=== PATIENT | male | born 1930 | race Caucasian/White ===

== ENCOUNTER 2017-04-26 19:22 | Emergency (ER) | payer OTHER ==
[2017-04-26 19:36] VITALS: RESP 16; TEMP 98.2
--- NOTE | 2017-04-26 20:12 | EDPHY ---
H & P Time Seen by Provider: 04/26/17 20:03 HPI/ROS: CHIEF COMPLAINT: Head injury HISTORY OF PRESENT ILLNESS: 87-year-old man with Parkinson's fell today. He was trying to remove his compression stockings and tripped landing on his head. History is from the son who was with the patient and translating. Patient did not lose consciousness only has pain in his forehead. Does not have weakness or numbness in extremities. Apparently did not lose consciousness. REVIEW OF SYSTEMS: Eye: no change in vision ENT: no sore throat Cardiac: no chest pain or syncope Pulmonary: no cough or SOB Abdomen: No vomiting or abdominal pain Musculoskeletal: Some neck pain Skin: Abrasion forehead Neuro: no headache, can move arms and legs Constitutional: no fever : no urinary symptoms A comprehensive 10 point review of systems is otherwise negative aside from elements mentioned in the history of present illness. PAST MEDICAL HISTORY: Includes Parkinson's, hypertension on amlodipine, hernia , cholecystectomy Social history: Here with his son General Appearance: Alert and conversant, cooperative. Eyes: No scleral icterus. Extraocular motion intact and pupils reactive ENT, Mouth: Normal mucous membranes. Forehead abrasion 2 cm diameter nonsuturable. Respiratory: Normal respiratory effort, breath sounds equal, lungs are clear to auscultation. Cardiovascular: Regular rate and rhythm. Gastrointestinal: Abdomen is soft and non tender. Neurological: Alert, face symmetric, normal motor and sensory in extremities. Skin: Abrasion on forehead. He does have venous stasis changes bilaterally. Musculoskeletal: Peripheral edema 2+ but no calf tenderness. No thoracic or lumbar spine tenderness. He does have midline cervical spine tenderness. No other extremity or clavicular tenderness. Psychiatric: Not agitated. Emergency Department course/MDM: EKG, head cervical spine CT, wound care and tetanus update. By history the fall was clearly mechanical and not syncope or likely to be dysrhythmia or cardiac problem. 2121: [place], CT head and cervical spine CT no acute traumatic injury seen on either. Clinically cleared by myself at this time. Very superficial skin abrasion flap trimmed off of the forehead, nonsuturable. Patient and son state they are comfortable with being discharged. Smoking Status: Former smoker Constitutional: Initial Vital Signs Temperature (C) 36.8 C 04/26/17 19:30 Heart Rate 82 04/26/17 19:30 Respiratory Rate 16 04/26/17 19:30 Blood Pressure 148/72 H 04/26/17 19:30 O2 Sat (%) 96 04/26/17 19:30 O2 Delivery Mode Room Air Allergies/Adverse Reactions: No Known Allergies Allergy (Unverified 04/26/17 19:28) Home Medications: Medication Instructions Recorded Amlodipine-Benazepril 5-10 mg 04/26/17 Aspirin 04/26/17 Galantamine ER 04/26/17 Isosorbide Mononitrate 04/26/17 Levothyroxine 04/26/17 Oxybutynin 04/26/17 Pramipexole ER 04/26/17 Medical Decision Making - Diagnostics EKG Interpretation: 12-lead EKG interpreted by me; official reading is in trace master. My interpretation is sinus rhythm with first-degree AV block otherwise normal. Imaging Results: Imaging Impressions Cervical Spine CT 04/26/17 20:10 Impression: Head CT: 1. No acute intracranial abnormalities. 2. Punctate calcification in the inferior right frontal lobe, along with a subtle hyperdensity in the perisylvian left frontal lobe, may represent the sequelae of prior infection. 3. Severe chronic microvascular ischemic changes in the supratentorial white matter. 4. Moderate generalized atrophy. Cervical Spine: 1. No definite acute abnormalities. 2. Severe C1-C2 degenerative changes with suspected pannus formation. Consider erosive arthropathy such as rheumatoid arthritis. 3. Posterior subluxation of the right lateral mass of C1 relative to C2 which may be positional or could be secondary to instability. 4. Severe multilevel degenerative changes, most apparent from C5 through C7, and described in detail above. 5. Cannot exclude ligament, spinal cord and/or vascular abnormalities on this exam. If there is persistent pain or neurologic deficit, consider MRI and/or flexion and extension radiographs of the cervical spine. Dr. Prince discussed these findings by telephone with SHAKILA GLEASON on 04/26/2017 21:21. Head CT 04/26/17 20:10 Impression: Head CT: 1. No acute intracranial abnormalities. 2. Punctate calcification in the inferior right frontal lobe, along with a subtle hyperdensity in the perisylvian left frontal lobe, may represent the sequelae of prior infection. 3. Severe chronic microvascular ischemic changes in the supratentorial white matter. 4. Moderate generalized atrophy. Cervical Spine: 1. No definite acute abnormalities. 2. Severe C1-C2 degenerative changes with suspected pannus formation. Consider erosive arthropathy such as rheumatoid arthritis. 3. Posterior subluxation of the right lateral mass of C1 relative to C2 which may be positional or could be secondary to instability. 4. Severe multilevel degenerative changes, most apparent from C5 through C7, and described in detail above. 5. Cannot exclude ligament, spinal cord and/or vascular abnormalities on this exam. If there is persistent pain or neurologic deficit, consider MRI and/or flexion and extension radiographs of the cervical spine. Dr. Prince discussed these findings by telephone with SHAKILA GLEASON on 04/26/2017 21:21. Differential Diagnosis: Differential diagnosis considered for head injury including but not limited to concussion, skull fracture, intraparenchymal contusion, subarachnoid, subdural and epidural hematoma. - Data Points Medications Given: Discontinued Medications Tetanus/Diphtheria Toxoids Adsorbed (Tetanus-Diphtheria Grifols) 0.5 ml IM .ONCE ONE Stop: 04/26/17 20:11 Last Admin: 04/26/17 21:11 Dose: Not Given Departure - Departure Disposition: Home, Routine, Self-Care Clinical Impression: Forehead abrasion Qualifiers: Encounter type: initial encounter Qualified Code(s): S00.81XA - Abrasion of other part of head, initial encounter Condition: Good Instructions: Head Injury (ED), Abrasion (ED) Referrals: DEBORAH MCALLISTER [Other] - As per Instructions
--- NOTE | 2017-04-26 20:34 | CPEKG ---
Heart Rate: 61 RR Interval: 984 P-R Interval: 232 QRSD Interval: 94 QT Interval: 420 QTC Interval: 423 P [place]: 39 QRS [place]: 8 T Wave [place]: 53 EKG Severity - ABNORMAL ECG - EKG Impression: SINUS RHYTHM EKG Impression: FIRST DEGREE AV BLOCK Electronically Signed By: Harley Benoit 26-Apr-2017 20:45:27
[2017-04-26] MEDS: TETANUS, DIPHTHERIA TOX (7YR+) 0.5 ML INJ IM ONE ×2 (20:44→21:11)
[2017-04-26 21:41] VITALS: BP 127/67; PULSE 75; O2SAT 94
== END 2017-04-26 21:59 | disposition home or self-care (01) ==
DX: S00.81XA Abrasion of other part of head, initial encounter (principal); I10 Essential (primary) hypertension; Z87.891 Personal history of nicotine dependence; W01.0XXA Fall on same level from slipping, tripping and stumbling without subsequent striking against object, initial encounter; Y93.89 Activity, other specified

== ENCOUNTER 2017-05-29 18:39 | Observation (INO) | payer OTHER ==
--- NOTE | 2017-05-29 19:36 | CPEKG ---
Heart Rate: 98 RR Interval: 612 P-R Interval: 180 QRSD Interval: 86 QT Interval: 348 QTC Interval: 445 P [place]: 0 QRS [place]: 25 T Wave [place]: 42 EKG Severity - NORMAL ECG - EKG Impression: SINUS RHYTHM Electronically Signed By: Hung Tompkins 29-May-2017 19:50:53
[2017-05-29] MEDS ORDERED: NS 2,000 ML IV ONE (19:42)
--- NOTE | 2017-05-29 19:49 | EDPHY ---
H & P Stated Complaint: SENT FROM PCP, NICK, COCCYX FX, DIZZINESS Time Seen by Provider: 05/29/17 19:22 HPI/ROS: CHIEF COMPLAINT: Possible pneumonia and dizziness HISTORY OF PRESENT ILLNESS: Patient is an 87-year-old man who has a history of chronic anemia. He has been treated without antibiotics for chronic left leg cellulitis. He was vomiting last night but no diarrhea. No fever. His symptoms resolved by morning. This morning however he fell and caused a skin tear over his cellulitis region. He complained of feeling lightheaded when he stood up. No chest pain. No shortness of breath. No syncope. His primary sent x-ray to his home and they obtained a chest x-ray and x-ray of his tailbone. The patient was told that he had a left-sided pneumonia as well as a fracture of his sacrum and to come to the ER. He denies fever, cough, shortness of breath. He does complain of pain in his tailbone. He has been able to ambulate. He denies extremity injury. REVIEW OF SYSTEMS: Constitutional: denies: chills, fever, recent illness, recent injury EENTM: denies: blurred vision, double vision, nose congestion Respiratory: denies: cough, shortness of breath Cardiac: denies: chest pain, irregular heart rate, lightheadedness, palpitations Gastrointestinal/Abdominal: denies: abdominal pain, diarrhea, nausea, vomiting, blood streaked stools Genitourinary: denies: dysuria, frequency, hematuria, pain Musculoskeletal: See HPI Skin: denies: lesions, rash, jaundice, bruising Neurological: See HPI Hematologic/Lymphatic: denies: blood clots, easy bleeding, easy bruising Immunologic/allergic: denies: HIV/AIDS, transplant EXAM: GENERAL: Well-appearing, well-nourished and in no acute distress. HEAD: Atraumatic, normocephalic. EYES: Pupils equal round and reactive to light, extraocular movements intact, sclera anicteric, conjunctiva are normal. ENT: TMs normal, nares patent, oropharynx clear without exudates. Moist mucous membranes. NECK: Normal range of motion, supple without lymphadenopathy or JVD. LUNGS: Breath sounds clear to auscultation bilaterally and equal. No wheezes rales or rhonchi. HEART: Regular rate and rhythm without murmurs, rubs or gallops. ABDOMEN: Soft, nontender, normoactive bowel sounds. No guarding, no rebound. No masses appreciated. BACK: No CVA tenderness, no spinal tenderness, step-offs or deformities pain over coccyx, no low back pain EXTREMITIES: Normal range of motion, no pitting or edema. No clubbing or cyanosis. Mild edema lower extremities NEUROLOGICAL: Cranial nerves II through XII grossly intact. Normal speech, normal gait. 5/5 strength, normal movement in all extremities, normal sensation PSYCH: Normal mood, normal affect. SKIN: Chronic dermatitis/venous stasis type injury to left leg, new skin tear Source: Patient Exam Limitations: No limitations - Personal History Current Tetanus Diphtheria and Acellular Pertussis (TDAP): Yes - Medical/Surgical History Hx Asthma: No Hx Chronic Respiratory Disease: No Hx Diabetes: No Hx Cardiac Disease: No Hx Renal Disease: No Hx Cirrhosis: No Hx Alcoholism: No Hx HIV/AIDS: No Hx Splenectomy or Spleen Trauma: No Other PMH: htn, parkinsons, hernia, LLE CELLULITIS, JOAO - Family History Significant Family History: No pertinent family hx - Social History Smoking Status: Former smoker Alcohol Use: None Constitutional: Initial Vital Signs Temperature (C) 36.4 C 05/29/17 19:26 Heart Rate 94 05/29/17 19:26 Respiratory Rate 18 05/29/17 19:26 Blood Pressure 135/73 H 05/29/17 19:26 O2 Sat (%) 95 05/29/17 19:26 O2 Delivery Mode Room Air Allergies/Adverse Reactions: No Known Allergies Allergy (Unverified 04/26/17 19:28) Home Medications: Medication Instructions Recorded Galantamine Hydrobromide [Razadyne 4 mg PO DAILY 04/26/17 4 MG (*)] Levothyroxine [Synthroid 50 mcg 50 mcg PO DAILY06 04/26/17 (*)] Oxybutynin Chloride [OXYBUTYNIN 5 mg PO DAILY 04/26/17 CHLORIDE ER] amLODIPine BESYLATE/BENAZEPRIL 1 each PO DAILY 04/26/17 [Lotrel 5/10 mg Cap (*)] Herbals/Supplements -Info Only 1 ea PO DAILY 05/29/17 Medical Decision Making - Diagnostics EKG Interpretation: An EKG obtained and was read and documented in trace view. Please see trace view for full reading and report. Sinus rhythm, no acute ischemic changes Imaging: Discussed imaging studies w/ diamond powder technician Radiologist ED Course/Re-evaluation: 9:30 p.m. we discussed the patient's lab work and x-ray which is reassuring. He has chronic fibrosis. He does not appear to have an acute pneumonia. He is not febrile or hypoxic or tachycardic. He does not have a cough or shortness of breath. He does have a history of smoking but quit 30 years ago. We discussed options. The patient would like admission because he states that he cannot care for himself in his independent living. He has been falling frequently and now has a broken his coccyx and has left leg cellulitis versus venous stasis versus dermatitis. I have paged hospital service for admission. 9:32 p.m. I discussed the case with Dr. Lazo who will admit. Differential Diagnosis: Partial list of the Differential diagnosis considered include but were not limited to; failure to thrive, cellulitis, venous stasis, pneumonia, pelvic fracture, hip fracture and although unlikely based on the history and physical exam, I also considered sepsis, CVA. - Data Points Laboratory Results: Laboratory Results 05/29/17 19:35 05/29/17 19:35 Medications Given: Discontinued Medications Albuterol/Ipratropium (Duoneb) 3 ml IH QID PENDING SALE TO [facility] Stop: 11/26/17 05:59 Last Admin: 05/30/17 13:07 Dose: 3 ml Amlodipine/Benazepril HCl (Lotrel 5-10 Mg Capsule) 1 each PO DAILY MADAN Stop: 11/26/17 08:59 Last Admin: 05/30/17 09:04 Dose: 1 each Enoxaparin Sodium (Lovenox) 40 mg SC DAILY MADAN Stop: 11/26/17 08:59 Last Admin: 05/30/17 09:04 Dose: 40 mg Galantamine Hydrobromide (Razadyne) 4 mg PO DAILY MADAN Stop: 11/26/17 08:59 Last Admin: 05/30/17 09:04 Dose: 4 mg Sodium Chloride (Ns) 2,000 mls @ 4,000 mls/hr 30 ml/kg infuse over 30 min ( 2000 ml) IV EDNOW ONE PRN Reason: Protocol Stop: 05/29/17 20:11 Last Admin: 05/29/17 20:22 Dose: 2,000 mls Levothyroxine Sodium (Synthroid) 50 mcg PO DAILY06 MADAN Stop: 11/26/17 05:59 Last Admin: 05/30/17 05:37 Dose: 50 mcg Oxybutynin Chloride (Ditropan Xl) 5 mg PO DAILY MADAN Stop: 11/26/17 08:59 Last Admin: 05/30/17 09:04 Dose: 5 mg Departure - Departure Disposition: Home, Routine, Self-Care Clinical Impression: Failure to thrive in adult Fractured coccyx Qualifiers: Encounter type: initial encounter Fracture type: closed Qualified Code(s): S32.2XXA - Fracture of coccyx, initial encounter for closed fracture Fall Qualifiers: Encounter type: initial encounter Qualified Code(s): W19.XXXA - Unspecified fall, initial encounter Skin tear of left lower leg without complication Qualifiers: Encounter type: initial encounter Qualified Code(s): S81.812A - Laceration without foreign body, left lower leg, initial encounter Condition: Fair
[2017-05-29 19:54] LABS: PLATELET COUNT 185 10^3/uL (150-400)
[2017-05-29 20:17] LABS: INR 1.15 (0.83-1.16); PROTIME(PATIENT) 14.9 SEC (12.0-15.0)
[2017-05-29] MEDS ORDERED: ONDANSETRON 4 MG/2 ML VIAL IVP PRN (23:01)
[2017-05-29] MEDS ORDERED: ACETAMINOPHEN 325 MG TAB PO PRN (23:01)
[2017-05-29] MEDS ORDERED: NS 1,000 ML IV SCH (23:15)
[2017-05-30 04:53] LABS: PLATELET COUNT 183 10^3/uL (150-400)
[2017-05-30] MEDS: IPRATROPIUM/ALBUTEROL 3 ML DEYVIAL IH SCH ×2 (05:30→13:07)
[2017-05-30] MEDS ORDERED: LEVOTHYROXINE 50 MCG TAB PO SCH (06:00)
[2017-05-30] MEDS ORDERED: OXYBUTYNIN 5 MG EXT REL TAB PO SCH (09:00)
[2017-05-30] MEDS ORDERED: AMLODIPINE BESYLATE 5/BENAZEPRIL 10MG 1 EACH CAP PO SCH (09:00)
[2017-05-30] MEDS ORDERED: ENOXAPARIN 40 MG/0.4 ML SYR SC SCH (09:00)
[2017-05-30] MEDS ORDERED: GALANTAMINE HBR 4 MG PO SCH (09:00)
--- NOTE | 2017-05-30 10:18 | GHP ---
[f rep st] HISTORY AND PHYSICAL DATE OF ADMISSION: 05/29/2017 SOURCE: Patient able to provide majority of the history, it was slightly difficult to obtain history as the patient's primary language is Yoruba, but he does have a pretty notable grasp with Yi. He is a little bit tangential, but redirectable. EMR was reviewed and case discussed with the [facility] hospital[facility] provider. CHIEF COMPLAINT: Fall, lightheadedness. HISTORY OF PRESENT ILLNESS: This is a very pleasant 87-year-old gentleman with past medical history significant for chronic lung fibrosis, anemia, left leg cellulitis, hypertension, Parkinson disease, and venous stasis, who presents to the emergency department today from his independent living facilit y following a fall earlier in the morning, as well as development of lightheadedness. The patient re ports that this was a mechanical fall. He denies any loss of consciousness, but states that he may h ave hit his head and his back. The patient is primarily dependent on a wheelchair, but is able to am bulate. He is noted to be unsteady on his feet. He did report an episode of vomiting last night. N o fevers, chills, cough, rhinorrhea. No worsening shortness of breath. No diarrhea. The patient re ports that his cellulitis on his lower extremity is improving. REVIEW OF SYSTEMS: Negative except as noted above and urinary incontinence. ALLERGIES: No known drug allergies. HOME MEDICATIONS: As available in EMR, amlodipine, benazepril 5/10 mg p.o. daily, galantamine 4 mg p .o. daily, oxybutynin 5 mg p.o. daily, levothyroxine 50 mcg p.o. daily. PAST MEDICAL HISTORY: Significant for chronic anemia, chronic lung fibrosis, lower leg cellulitis an d chronic wound, hypertension, Parkinson disorder, venous stasis, urinary incontinence, prostate canc er status post prostatectomy. PAST SURGICAL HISTORY: Significant for cholecystectomy. FAMILY HISTORY: Significant for family members remotely with TB. SOCIAL HISTORY: Patient lives independently in independent living. He quit smoking several years ag o. He does not drink or do any drugs. He has good family support from his children. CODE STATUS: Will need to clarify with patient's son available tomorrow. The patient does have some limited difficulties with Yi, and so will need to further discuss code status when additional s upport is available versus translation services. PHYSICAL EXAMINATION: VITAL SIGNS: Upon arrival to the emergency department, blood pressure 135/73, heart rate is 94, respiratory rate 18, O2 saturation 94% on room air with temperature 36.4. Vitals available at the time of interview, blood pressure 137/66, heart rate 92, respiratory rate 16, O2 sat uration 91% on room air with a temperature of 36.6. GENERAL: No acute distress. Very pleasant, eld erly, frail-appearing gentleman, is lying quietly in bed, awake. He is pleasant, talkative, slightly tangential, but redirectable. HEAD: Normocephalic, atraumatic. EYES: Extraocular muscles are int act. Pupils equal, round, reactive to light bilaterally and symmetric. No scleral icterus or conjun ctival injection. ENT: Mucous membranes appear moist. No pharyngeal erythema or exudates. Dentiti on in fair condition. NECK: Supple. Trachea midline. CV: Regular rate and rhythm. Faint systoli c murmur appreciated. No rubs or gallops. RESPIRATORY: Diminished bibasilarly, slightly coarse in the bases bilaterally. No wheezes or rhonchi. Unlabored breathing. Occasional cough. ABDOMEN: Po sitive bowel sounds. Soft, nontender to palpation. No rebound, guarding, or masses appreciated. : No suprapubic tenderness to palpation. No Reid catheter in place. EXTREMITIES: Patient with so me lower extremity edema, some chronic skin changes to the bilateral lower extremities. He has a ban dage on the left lower leg, which was removed. Mepilex was removed for evaluation. He appears to calero ve a blistering wound that has ruptured. He continues to have some surrounding erythema, but no clarita ration or fluctuance. NEURO: Grossly nonfocal. No facial drooping. Cranial nerves grossly intact. Patient is able to move all upper and lower extremities, although his bilateral lower extremities a re noted to be weaker than his upper extremities. Sensation is intact to upper and lower extremities . PSYCH: Patient is very pleasant, cooperative. He is not anxious. Thought process, content, and questions are appropriate. Patient again slightly tangential, but redirectable. LABORATORY STUDIES: WBC is 8.2, H and H 12.6 and 36.3, MCV 99.5, platelet count 185, neutrophil perc ent 76.9. PT is 14.9, INR is 1.15, PTT is 33.1. Lactic acid 1.4. Sodium is 136, potassium 3.6, chl oride 106, CO2 is 18, anion gap 12, BUN is 27, decreased down to 22, creatinine 1.1, stable from base line. Glucose 134 down to 105, calcium 8.9, total bilirubin is 1.0. TSH is 5.61. UA: Specific gra vity 1.003 with a pH of 6.0 and was otherwise negative. Blood cultures x2 are pending. EKG: Reviewed myself showed normal sinus rhythm in the 90s. No acute ST changes. Slightly prolonge d QT borderline. QTc is 445. No acute ST changes. Chest x-ray: Bilateral fibrotic changes appear chronic and no evidence of edema. No acute consolida tion. Upper lumbar spine compression fracture. Mild age indeterminate. Pulmonary fibrosis and volu me loss. Lingular and right middle lobe opacities may represent scarring. Pelvis x-ray: Negative for any acute fractures. CT head: Negative for acute fracture or evidence of acute intracranial injury. Atrophy and extensiv e white matter disease unchanged. ASSESSMENT AND PLAN: Pleasant 87-year-old gentleman, who presents to the emergency department follow ing a fall with concern for presyncope. 1. Lightheadedness. The patient at time of my interview was denying any lightheadedness or presynco pe. He reported that his lower extremities gave way and he fell, landing on his back. The patient i s primarily wheelchair bound, but is able to ambulate in general at home. He does live in an [facility] living facility at this time. He may require additional assistance. Physical Therapy and Occup ational Therapy consultations will be consulted for further recommendations at discharge. 2. Fall, as noted above. 3. Anemia, appears to be at baseline. No evidence of infectious process. 4. Hyperglycemia, mild, is nonfasting. We will plan to monitor a.m. labs. 5. Failure to thrive with generalized weakness and history of falls. Again, Physical Therapy/Occupa tional Therapy will be consulted, as well as Case Management. 6. Chronic left lower extremity wound and cellulitis. The patient is afebrile. No white count. No t on any antibiotics. Wound Care will be consulted to assist with management of the left lower extre mity wound. Mepilex has been placed over for the evening. 7. Parkinson disease. 8. Benign essential hypertension. Resume patient's amlodipine and benazepril. 9. Hypothyroidism. Check TFTs. Resume patient's levothyroxine replacement. 10. Lower extremity weakness, acute on chronic. Physical Therapy/Occupational Therapy as noted camilo canela. Wheelchair p.r.n. 11. Chronic lung fibrosis. Patient without exacerbation. Supportive care. 12. Fluids, electrolytes, nutrition. Patient will be given some supplemental intravenous fluid hydr ation. Electrolytes will be monitored and replaced if needed. 13. Code status will remain full at this time, pending further availability of translation services or patient's son to further discuss patient's desires for resuscitation. 14. Disposition. Patient has been admitted to observation status on the medical floor at this time. Will reassess later this morning. Physical Therapy, Occupational Therapy, and case Management cons ultations have been placed. 15. Prophylaxis. Sequential compression devices, holding anticoagulation if mobilized or on prophyl axis. /[id number]/MODL
--- NOTE | 2017-05-30 10:39 | ASMTCMCOM ---
CM Note CM Note Notes: Pt to DC today back to [facility]. [facility]. Pt is current with [facility] RN. He has been embarrased to have PT in his facility but needs it added. Spoke with son Farooq who stated that pt is now more agreeable to PT. Faxed orders to Nathaniel. Date Signed: 05/30/2017 10:38 AM Electronically Signed By:Stephanie Beck LCSW
[2017-05-30 11:25] VITALS: BP 123/62; TEMP 97.8
--- NOTE | 2017-05-30 12:44 | WOCRNPDOC ---
WOCRN Advanced Assessment Note - Skin Integrity Problem, Advanced Assess Left Lower Leg Dressing Type: Allevyn Life Dressing Description: Clean/Dry, Intact Exudate Amount: Minimal Exudate Characteristic(s): Serosanguinous Integumentary Issue Intervention: Visualized Under Dressing Carlie Wound Tissue: Erythema, Hemosiderin Staining, Venous Dermatitis, Xerotic Wound Bed Constitution: Red/Stamps - Non Granular Tissue Site Measurement - Head-to-Toe Length X Width X Depth (cm): 4.2x3.2x0.1 Skin Integrity Problem Comment: Bilateral calf measurments: 33.5. Spandigrip D provided. Patient wears compression at home. The wound is a partial thickness wound that appears to be a result of edema. Wound care will sign off. Patient's younger relative was in the room.
[2017-05-30 13:17] VITALS: RESP 18
--- NOTE | 2017-05-30 13:54 | GDS ---
[f rep st] DISCHARGE SUMMARY DISCHARGE DIAGNOSES: 1. Mechanical fall. 2. Chronic anemia. 3. Lung fibrosis. 4. Left lower leg cellulitis with chronic wound. 5. Hypertension. 6. Parkinson's disorder. 7. Venous stasis. 8. Urinary incontinence. 9. History of prostate cancer, status post prostatectomy. HISTORY OF PRESENT ILLNESS: This is a very pleasant 87-year-old male with history of chronic lung fi brosis, anemia, and left leg cellulitis with wound, Parkinson disease, who presents to the ER from [facility]. Had a fall earlier in the morning, per his son, with some lightheadedness. He denies any prodromal chest pain, shortness of breath, clamminess. He said he may have hit the back of his head . Denies any diplopia. He has a walker and a cane at home but, per son, is not always using it. Th is is the second fall within 2 months. His son, Farooq, has been trying to arrange physical therapy through [facility], but patient has been resistant. HOSPITAL COURSE BY PROBLEM: 1. Mechanical fall: Patient denies any prodromal symptoms. Blood pressures have remained stable he re. He is likely deconditioned. He is not always consistent using his walker and cane. I reiterate d the importance of this to prevent further injury, like a fracture. Head CT negative for acute blee d or hematoma. Pelvic x-ray was negative for fracture. He was evaluated by PT here and will continu e this at [facility]. 2. Chronic left leg wound. Prior cellulitis of the wound. Currently there is no evidence of overly ing infection. Continue twice a week wound care as he was receiving. 3. Parkinson disease. Continue home medications. 4. Hypothyroidism. Levothyroxine. 5. Incontinence. Oxybutynin. 6. Chronic lung fibrosis. Had previously worked in an environment with lots of metal. He denies an y shortness of breath. He is stable on room air. No evidence of infection. DISPOSITION: Patient is stable for discharge to [facility] with home RN and physical therapy. MEDICATIONS: No medication changes. FOLLOWUP: With his primary care physician. I discussed case with his son. Time spent on discharge greater than 45 minutes, coordinating dischar ge plan and explaining physical therapy and further treatment with patient. /[id number]/MODL
--- NOTE | 2017-05-30 14:09 | PDIAF ---
- Diagnosis Diagnosis: Fall - Medication Management Discharge Medications: Medications to Continue on Transfer Galantamine Hydrobromide [Razadyne 4 MG (*)] 4 mg PO DAILY 04/26/17 [Last Taken 05/29/17] Levothyroxine [Synthroid 50 mcg (*)] 50 mcg PO DAILY06 04/26/17 [Last Taken ] Oxybutynin Chloride [OXYBUTYNIN CHLORIDE ER] 5 mg PO DAILY 04/26/17 [Last Taken 05/29/17] amLODIPine BESYLATE/BENAZEPRIL [Lotrel 5/10 mg Cap (*)] 1 each PO DAILY [Last Taken 05/29/17] Herbals/Supplements -Info Only 1 ea PO DAILY 05/29/17 [Last Taken 05/29/17] Discharge Medications: Refer to the Discharge Home Medication list for PRN reason. - Orders Services needed: Home Care, Registered Nurse, Physical Therapy, Occupational Therapy Home Care Face to Face: I certify that this patient was under my care and that I had the required [id number] encounter meeting the encounter requirements on the discharge day. My findings support the fact that the patient is homebound as defined in Home Care Face to Face Continued: CMS Chapter 7 Medicare Benefits Manual 30.1.1 , The condition of the patient is such that there exists a normal inability to leave home and consequently, leaving home would require a considerable and taxing effort. Isolation Type: Droplet Isolation - Follow Up Care Current Providers and Referrals: DEBORAH MCALLISTER [Other] - As per Instructions
[2017-05-30 14:33] VITALS: PULSE 84; O2SAT 95
--- NOTE | 2017-05-30 14:47 | ASDISCHSUM ---
Discharge Information Plan Status: Medically Cleared to Leave: Discharge Date:05/30/2017 02:28 PM CM D/C Disposition: ADT D/C Disposition:Jail Facility Projected Discharge Date:05/30/2017 11:00 AM Transportation at D/C: Discharge Delay Reason: Follow-Up Date:05/30/2017 11:00 AM Discharge Slot: Final Diagnosis: Placement Information Referral Type:*Hospice Referral ID:[id number] Provider Name: Address 1: Phone Number: Address 2: Fax Number: City: Selection Factors: State: Referral Type:*Home Health Care Services Referral ID:[id number] Provider Name:[facility] ([facility]) Address 1:[address] [address] Address 2: City:[place] Selection Factors: State:[place] Patient Contact Information Contact Name:REHAN Relationship:Son Address:[address] [facility] Work Phone: City:[place] Alternate Phone: State/Zip Code:[place] [address] Email: Financial Information Financial Class:Medicare Primary Plan Desc:MEDICARE OUTPATIENT Primary Plan Number:[id number] Secondary Plan Desc: Secondary Plan Number: Assessment Information [facility] Progress Note CM Note CM Note Notes: Pt to DC today back to [facility]. Pt is current with [facility] RN. He has been embarrased to have PT in his facility but needs it added. Spoke with son Farooq who stated that pt is now more agreeable to PT. Faxed orders to Nathaniel. Date Signed: 05/30/2017 10:38 AM Electronically Signed By:Stephanie Beck LCSW Intervention Information Intervention Type:*DEJESUS-Signed Date of Service:05/30/2017 11:30 AM Patient Type:Observation Staff Member:Kathleen Hopper Hours: Discipline: Severity: Comment:
== END 2017-05-30 14:28 ==
LOC: F1N 22:15
PROVIDERS: ADMIT Student in an Organized Health Care Education/Training Program; ATTEND Internal Medicine
DX: R62.7 Adult failure to thrive (principal); R29.6 Repeated falls; Z91.81 History of falling; R32 Unspecified urinary incontinence; R54 Age-related physical debility; I87.312 Chronic venous hypertension (idiopathic) with ulcer of left lower extremity; L97.829 Non-pressure chronic ulcer of other part of left lower leg with unspecified severity; R73.9 Hyperglycemia, unspecified; I10 Essential (primary) hypertension; G20 Parkinson's disease; E03.9 Hypothyroidism, unspecified; E86.9 Volume depletion, unspecified; D64.9 Anemia, unspecified; J84.10 Pulmonary fibrosis, unspecified; Z85.46 Personal history of malignant neoplasm of prostate; Z87.891 Personal history of nicotine dependence
CPT/HCPCS: 70450; 71046; 72170; 93005; 96360; 96372; 97116; 97161; 97166; 97530; 97535; 99285; G0378; G8978; G8979; G8987; G8988; G8989; J1650

== ENCOUNTER 2017-05-31 06:11 | Inpatient (IN) | payer OTHER ==
--- NOTE | 2017-05-31 06:22 | EDPHY ---
H & P Time Seen by Provider: 05/31/17 18:00 HPI/ROS: HPI CHIEF COMPLAINT: Worsening back pain HISTORY OF PRESENT ILLNESS: This is an 87-year-old male who was recently here in the hospital in emergency room on 05/29 and discharged on 05/30 for generalized debility, and coccyx pain with coccyx fracture, he presents back to the emergency room this morning by EMS for ongoing back pain. He states when he goes to lay flat he gets back pain that is located from the upper thoracic spine all the way down to his coccyx. He describes the pain is midline. Worse when he lays flat and he cannot tolerated. Denies chest pain or shortness of breath, denies abdominal pain. Patient decided call 911 this morning for ongoing back pain. States he is unable to lay flat or sleep on all all night. Past Medical History: Parkinson's disease, hypertension, left lower extremity cellulitis, lung fibrosis, history of prostate CA, urinary incontinence Past Surgical History: No recent surgery Social History: Resides at [facility]. Family History: Noncontributory ROS REVIEW OF SYSTEMS: A comprehensive 10 point review of systems is otherwise negative aside from elements mentioned in the history of present illness. Exam Constitutional elderly, frail, in no acute distress, triage nursing summary reviewed, vital signs reviewed, awake/alert. Eyes normal conjunctivae and sclera, EOMI, PERRLA. HENT normal inspection, atraumatic, dry mucus membranes, no epistaxis, neck supple/ no meningismus, no raccoon eyes. Respiratory clear to auscultation bilaterally, normal breath sounds, no respiratory distress, no wheezing. Cardiovascular rate normal, regular rhythm, no murmur, no edema, distal pulses normal. Gastrointestinal soft, non-tender, no rebound, no guarding, normal bowel sounds, no distension, no pulsatile mass. Genitourinary no CVA tenderness. Musculoskeletal I do not appreciate any crepitus or significant focal tenderness on exam down his thoracic or lumbar spine, full range of motion, no calf swelling, no tenderness of extremities, no meningismus, good pulses, neurovascularly intact. Skin pink, warm, & dry, no rash, skin atraumatic. Neurologic awake, alert and oriented x 3, AAOx3, moves all 4 extremities equally, motor intact, sensory intact, CN II-XII intact, normal cerebellar, normal vision, normal speech. Psychiatric normal mood/affect. Heme/Lymph/Immune no lymphadenopathy. Differential Diagnosis: Includes but is not limited to in a particular order chronic debility, muscle skeletal back pain, compression fractures, disc disease , cardiac disease Medical Decision Making: Plan for this patient teletypesetter monitor, IV establishment blood draw, check troponin EKG, although I do feel that his pain is musculoskeletal nature, will perform chest x-ray, thoracic spine x-ray and lumbar spine x-ray. Will re-evaluate. Re-evaluation: Thoracic spine and lumbar spine x-ray reviewed by myself. Extensive degenerative disc disease. Osteophytes. I am unable to visualize an acute compression fracture. Will have radiology review the films. Chest x-ray shows pulmonary fibrosis no focal infiltrate. Due to this patient's debility, generalized weakness, and picture failure to thrive with acute back pain I have asked the hospitalist service to readmit him to the hospital for further evaluation of his back pain. I did perform x-rays extensive degenerative disc disease this may be causing his back discomfort. It is also possible he has age indeterminate compression fractures causing his back discomfort. Plan will be for admission for pain control PT and OT to see and case management to evaluate. I did specifically ask the patient would like to go home however he prefers to come into the hospital for pain control. I spoke with Dr. Welch who agrees to admit. EKG interpretation by me on record in [employer] system. Impression time of EKG 6:57 a.m., sinus rhythm rate of 88. Otherwise unremarkable EKG. No ST elevation no ST depression no significant T-wave abnormalities. Intervals are okay. When I compare this to his old EKG is unchanged. Source: Patient, EMS - Medical/Surgical History Hx Asthma: No Hx Chronic Respiratory Disease: No Hx Diabetes: No Hx Cardiac Disease: No Hx Renal Disease: No Hx Cirrhosis: No Hx Alcoholism: No Hx HIV/AIDS: No Hx Splenectomy or Spleen Trauma: No Other PMH: htn, parkinsons, hernia, LLE CELLULITIS, JOAO - Social History Smoking Status: Former smoker Constitutional: Initial Vital Signs Temperature (C) 36.4 C 05/31/17 06:15 Heart Rate 98 05/31/17 06:15 Respiratory Rate 18 05/31/17 06:15 Blood Pressure 149/79 H 05/31/17 06:15 O2 Sat (%) 95 05/31/17 06:15 O2 Delivery Mode Room Air Allergies/Adverse Reactions: No Known Allergies Allergy (Unverified 05/31/17 06:15) Home Medications: Medication Instructions Recorded Galantamine Hydrobromide [Razadyne 4 mg PO DAILY 04/26/17 4 MG (*)] Levothyroxine [Synthroid 50 mcg 50 mcg PO DAILY06 04/26/17 (*)] Oxybutynin Chloride [OXYBUTYNIN 5 mg PO DAILY 04/26/17 CHLORIDE ER] amLODIPine BESYLATE/BENAZEPRIL 1 each PO DAILY 04/26/17 [Lotrel 5/10 mg Cap (*)] Herbals/Supplements -Info Only 1 ea PO DAILY 05/29/17 Pramipexole Di-HCl [Mirapex] 0.5 mg PO 08,12,16 06/01/17 Medical Decision Making - Data Points Laboratory Results: Laboratory Results 05/31/17 06:35 05/31/17 06:35 Medications Given: Acetaminophen (Tylenol) 650 mg PO Q4HRS PRN PRN Reason: Pain, Mild/Fever, Can Take PO Stop: 11/27/17 07:37 Last Admin: 06/01/17 09:36 Dose: 650 mg Hydrocodone Bitart/Acetaminophen ([place] 5/325) 1 - 2 tab PO Q4HRS PRN PRN Reason: Pain, Moderate Able to Take PO Stop: 06/10/17 07:37 Last Admin: 06/02/17 05:32 Dose: 1 tab Amlodipine/Benazepril HCl (Lotrel 5-10 Mg Capsule) 1 each PO DAILY MADAN Stop: 11/27/17 10:14 Last Admin: 06/01/17 09:36 Dose: 1 each Enoxaparin Sodium (Lovenox) 40 mg SC DAILY MADAN Stop: 11/27/17 08:59 Last Admin: 06/01/17 09:32 Dose: 40 mg Galantamine Hydrobromide (Razadyne) 4 mg PO DAILY MADAN Stop: 11/27/17 10:14 Last Admin: 06/01/17 09:57 Dose: 4 mg Levothyroxine Sodium (Synthroid) 50 mcg PO DAILY06 MADAN Stop: 11/27/17 10:14 Last Admin: 06/02/17 05:32 Dose: 50 mcg Miscellaneous Medication (Pramipexole Di-Hcl [Mirapex]) 0.5 mg PO ,,16 MADAN Stop: 11/28/17 09:29 Last Admin: 06/01/17 16:50 Dose: 0.5 mg Oxybutynin Chloride (Ditropan Xl) 5 mg PO DAILY MADAN Stop: 11/27/17 10:14 Last Admin: 06/01/17 09:35 Dose: 5 mg Discontinued Medications Amlodipine/Benazepril HCl (Lotrel 5-10 Mg Capsule) 1 each PO DAILY MADAN Stop: 11/27/17 10:14 Last Admin: 05/31/17 10:41 Dose: 1 each Cyclobenzaprine HCl (Flexeril) 5 mg PO ONCE ONE Stop: 05/31/17 20:31 Last Admin: 05/31/17 21:36 Dose: 5 mg Fentanyl (Sublimaze) 50 mcg IVP EDNOW ONE Stop: 05/31/17 06:38 Last Admin: 05/31/17 06:55 Dose: 50 mcg Sodium Chloride (Ns) 500 mls @ 0 mls/hr IV ONCE ONE PRN Reason: Wide Open Stop: 05/31/17 06:38 Last Admin: 05/31/17 06:55 Dose: 500 mls Levothyroxine Sodium (Synthroid) 50 mcg PO DAILY06 [facility] Stop: 11/27/17 10:14 Last Admin: 06/01/17 06:22 Dose: Not Given Miscellaneous Medication (Herbals/Supplements -Info Only) 1 each PO DAILY MADAN Stop: 11/27/17 10:14 Last Admin: 05/31/17 10:41 Dose: Not Given Oxybutynin Chloride (Ditropan Xl) 5 mg PO DAILY MADAN Stop: 11/27/17 10:14 Last Admin: 05/31/17 10:41 Dose: 5 mg Departure - Departure Disposition: [facility] Clinical Impression: Back pain Qualifiers: Back pain location: thoracic back pain Chronicity: acute Back pain laterality: midline Qualified Code(s): M54.6 - Pain in thoracic spine Condition: Fair
[2017-05-31] MEDS ORDERED: NS 500 ML IV ONE (06:37)
[2017-05-31] MEDS ORDERED: fentaNYL 100 MCG/2 ML INJ IVP ONE (06:37)
[2017-05-31 06:42] LABS: PLATELET COUNT 180 10^3/uL (150-400)
--- NOTE | 2017-05-31 06:58 | CPEKG ---
Heart Rate: 88 RR Interval: 682 P-R Interval: 208 QRSD Interval: 88 QT Interval: 360 QTC Interval: 436 P [place]: 59 QRS [place]: 14 T Wave [place]: 39 EKG Severity - NORMAL ECG - EKG Impression: SINUS RHYTHM Electronically Signed By: Kaia Simeon 31-May-2017 15:31:18
[2017-05-31] MEDS ORDERED: ONDANSETRON 4 MG/2 ML VIAL IVP PRN (07:38)
[2017-05-31] MEDS ORDERED: Herbals/Supplements -Info Only PO SCH (10:15)
[2017-05-31] MEDS ORDERED: OXYBUTYNIN 5 MG EXT REL TAB PO SCH (10:15)
[2017-05-31] MEDS ORDERED: AMLODIPINE BESYLATE 5/BENAZEPRIL 10MG 1 EACH CAP PO SCH (10:15)
[2017-05-31] MEDS: GALANTAMINE HBR 4 MG PO SCH (10:40)
[2017-05-31] MEDS: LEVOTHYROXINE 50 MCG TAB PO SCH (10:41)
[2017-05-31] MEDS: ENOXAPARIN 40 MG/0.4 ML SYR SC SCH (10:41)
--- NOTE | 2017-05-31 11:12 | ASMTCMCOM ---
CM Note CM Note Notes: Pt readmitted today for back pain after DC yesterday. Pt lives at [facility] and has [facility] for RN, PT and OT. CM will follow for any changes in DC plan. Date Signed: 05/31/2017 11:11 AM Electronically Signed By:Stephanie Beck LCSW
--- NOTE | 2017-05-31 12:08 | GHP ---
[f rep st] HISTORY AND PHYSICAL DATE OF ADMISSION: 05/31/2017 CHIEF COMPLAINT: Acute back pain, L1 fracture. HISTORY AND PHYSICAL: An 87-year-old male with Parkinson's disease, chronic lung fibrosis, anemia, a nd hypertension presented yesterday after a fall in his independent living facility. He said it was mechanical. He did not have any prodromal symptoms such as chest pain, sweating, nausea, or lighthea dedness. He felt a little dizzy afterwards. He thinks he hit his head. I spoke with the patient, a nd his son interpreted from yesterday, and the patient denied any back or hip pain. He had a pelvic x-ray that was negative yesterday. He previously presented to the hospital in April of this year w ith a fall, as not compliant with using his walker and cane. His son has been trying to arrange PT a s an outpatient, but the patient has declined. Given the fact that the patient was stable yesterday, he was discharged back to [facility] with PT plan. Upon my interview today with a medical records supervisor, he complains of coccyx pain. He said he could no t sleep at night. He says the pain when he lies flat is from the upper thoracic spine all the way do wn to his coccyx. He says it is midline. He said he laid up in bed last night. Denies chest pain, shortness of breath, dizziness. The patient also states that he has had some difficulty swallowing, and that is actually why he fell. He said he was choking on food. He describes a foam sensation in his throat. REVIEW OF SYSTEMS: I completed a 10-point review of systems, negative except as noted in HPI injury. PAST MEDICAL HISTORY: Parkinson's, hypertension, lower left lower leg cellulitis, lung fibrosis, his tory of prostate cancer, urinary incontinence. PAST SURGICAL HISTORY: Cholecystectomy. FAMILY HISTORY: Remote TB. SOCIAL HISTORY: He lives independently at [facility]. He had arrange for outpatient PT/OT. He abbie t smoking several years ago. Does not drink alcohol. ALLERGIES: None. HOME MEDICATIONS: Lotrel 5/10 mg daily, oxybutynin 5 mg daily, levothyroxine 50 mcg daily, herbal bar pplement, galantamine 4 mg daily. PHYSICAL EXAMINATION: VITAL SIGNS: Temperature 36.4, blood pressure heart rate is 90, re spirations 16, 95% on room air. GENERAL: Sitting up in bed eating breakfast. No acute distress. H EENT: PERRLA. EOMI. Oropharynx clear. CV: Regular rate and rhythm. No murmurs, gallops, rubs. LUNGS: Crackles right mid lung field to base. MUSCULOSKELETAL: Tenderness upper thoracic spine. H e denies lumbar tenderness when palpating over the spine. NEURALLY: Intact. PSYCH: Alert and orie nted x3. LABORATORY DATA: WBC 7, hemoglobin 13, hematocrit 38, platelets 180, sodium 138, potassium 4.8, chlo ride 108, carbon dioxide 16, creatinine 1.2, glucose is 136. Troponin less than 0.012, TSH 5.6, free T is 1.17. Chest x-ray 05/31/2017: Interstitial pulmonary fibrosis with volume loss with superimposed atelectas is bilaterally. Lumbar spine x-ray 05/31/2017: Acute L1 fracture. Thoracic spine 05/31/2017: Negative. ASSESSMENT/PLAN: 1. Acute L1 fracture: Secondary to recent fall. His pain is currently controlled with Tylenol. I have spoken with Neurosurgery, who will evaluate and likely do a brace and conservative treatment. 2. Dysphagia: This is new information today. We will have a speech evaluation. 3. Parkinson: Resume home medications. 4. Hypothyroidism: Synthroid. 5. Hypertension: Resume home medication. 6. Chronic kidney disease: Creatinine stable. 7. Chronic lung fibrosis: Stable. No evidence of infection. He is on room air. 8. Incontinence: Oxybutynin. 9. Chronic left leg wound prior cellulitis: There is no evidence of infection. He was receiving wo und care at his facility twice a week. We will continue this here. 10. Diet: Regular. 11. Deep venous thrombosis prophylaxis: Lovenox. DISPOSITION: The patient warrants inpatient admission given acute lumbar fracture. Neurosurgery karyn mendoza and PT. /[id number]/MODL
--- NOTE | 2017-05-31 18:05 | GCON ---
[f rep st] CONSULTATION DATE OF CONSULTATION: 05/31/2017 REASON FOR CONSULTATION: Back pain, status post fall with questionable L1 fracture. HISTORY OF PRESENT ILLNESS: Please note, the following patient's information was obtained from his medical records as well as his son who was present in the room today during the clinical examination and the interview. This is an 87-year-old gentleman who lives at [facility] independently who has a history of Parkinson disease, chronic lung fibrosis, anemia, and hypertension, who presented to the emergency department at [facility] after a fall at his independent living facility. The patient states it was a mechanical fall. There were no prodromal symptoms. He landed on his buttocks and developed acute onset of pain located near his coccyx at that time. He was evaluated and wa diagnosed with a coccyx fracture despite a negative pelvic x-ray. The patient has been in the hospital back in April of this year as well, as he was noncompliant with his walker and cane. The patient has been trying to do PT as an outpatient. At the time of the interview, the patient is noting some pain in the upper thoracic spine and down by his tail bone but no mid thoracic or mid lumbar spine pain. No numbness, tingling, pain or weakness of the upper or lower extremities. When he lays on his back flat, he states he has pain all the way from his upper thoracic spine to his coccyx. Pain is improved with utilization of pain medications in the hospital. No history of prior traumatic events. REVIEW OF SYSTEMS: Complete 10-point Review of Systems from the patient's intake form was reviewed by myself and is negative except for those noted above in the HPI. PAST MEDICAL HISTORY: 1. Parkinson's. 2. Hypertension. 3. History of left lower extremity cellulitis. 4. Lung fibrosis. 5. History of prostate cancer. 6. Urinary incontinence. PAST SURGICAL HISTORY: Cholecystectomy. FAMILY HISTORY: Positive for remote TB. SOCIAL HISTORY: Lives independently at [facility]. He is doing outpatient PT and OT. No tobacco use currently and he quit several years ago. No alcohol use. ALLERGIES: No known drug allergies. MEDICATIONS PRIOR TO ADMISSION: 1. Lotrel 5/10 mg p.o. daily. 2. Oxybutynin 5 mg p.o. daily. 3. Levothyroxine 50 mcg p.o. daily. 4. Herbal supplements. 5. Galantamine 4 mg p.o. daily. PHYSICAL EXAMINATION: VITAL SIGNS: Blood pressure 143/76, heart rate 93, respiratory rate 16, satting at 95% on room air. Temperature is 36.4. GENERAL : Patient is lying in the bed, is no acute distress. He is eating his lunch with his son at the bedside. He is quite pleasant and cooperative with the examination. He speaks very little Azerbaijani and most of the examination is completed with both him and his son. HEENT: Head is atraumatic, normocephalic. Pupils are equal, round, and reactive to light bilaterally. Extraocular movements are intact. Oropharynx is moist. NEURO: Cranial nerves 2-12 are intact. Tongue protrudes midline. Uvula and palate elevate symmetrically. He has intact sensation to light touch on his face bilaterally. He has intact shoulder shrug bilaterally. Pupils are equal, round, and reactive to light bilaterally. Extraocular movements are intact. CARDIOVASCULAR AND PULMONARY: Deferred. MOTOR: He has 5/5 strength, bilateral occupational therapist assistant strength, biceps, triceps, deltoids, although he does state he has upper thoracic pain with examination of the deltoids and with his biceps and triceps. He has 5/5 strength bilateral hip flexion, knee flexion and extension, plantar dorsiflexion, and extensor hallucis longus. OTHER: He has no pain to the midline thoracic cervical or lumbar spine with direct palpation. He is complaining mainly of pain near his coccyx on examination. Gait and station are deferred. No Almaraz's, no Babinski. IMAGING: Patient underwent an x-ray of the thoracic and lumbar spine, reviewed by myself on the [facility] PAC system. The thoracic spine is negative for any posttraumatic sequelae or fractures. The lumbar spine x-ray demonstrates a questionable L1 compression deformity that may be acute. There is mild retrolisthesis of L3-L4 and a 1 cm spondylolisthesis of L4-L5 which appeared to be likely degenerative in nature. ASSESSMENT AND PLAN: The patient is an 87-year-old gentleman who presents to the hospital with failure to thrive and has evidence of back pain, status post a fall onto his buttocks approximately a day ago. There is a questionable L1 fracture on his x-ray; however, the patient has no direct tenderness to palpation on examination clinically. I suspect he does not have any traumatic fractures of his thoracic or lumbar spine. However, he is complaining of upper thoracic spine pain and coccygeal pain. I have ordered an MRI of the thoracic and lumbar spine as well as a CT scan of the pelvis to evaluate for any additional fractures and the chronicity of the thoracic/lumbar spine fractures. I discussed the treatment options with the patient and his son, both being a possible kyphoplasty versus bracing for either of his injuries, but we will first determine these based on the imaging studies. He and his son expressed an understanding and we will wait to see what the imaging studies demonstrate before proceeding forth with any recommendations. It is likely that he may be treated simply with pain medications and discharged with therapies if everything is negative. Thank you for this consultation. /[id number]/MODL MTDLesvia
[2017-05-31] MEDS: ACETAMINOPHEN 325 MG TAB PO PRN (18:40)
[2017-05-31] MEDS ORDERED: CYCLOBENZAPRINE 10 MG TAB PO ONE (20:30)
[2017-06-01] MEDS: LEVOTHYROXINE 50 MCG TAB PO SCH ×2 (06:22→06:29)
--- NOTE | 2017-06-01 08:26 | NEUSURGPN ---
Assessment/Plan: A: 87 yo M with thoracic and sacral pain. MRI with acute L1 compression fx, L45 stenosis. MRI T spine and CT pelvis negative. Plan: -Imaging reviewed with Dr. 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 Could consider IR kyphoplasty vs TORSTEN if his pain is not well managed on oral medications. Would prefer to avoid risks of surgery given pt's age. -Encourage OOB with PT/OT -No brace needed at this time -D/w Dr. Crowder and pt's RN -Call NS with any questions or concerns. Subjective: Pt resting in bed. He states that his pain is getting better. Didn't sleep much last night. Objective: Awake and alert NAD VSS MAEx4 Motor 5/5 BLE +LT Urinary Catheter in Place: No - Physician Discussed Patient with Dr.: Crowder Neurosurgery Physical Exam - Vitals, I&O, Labs I and O 05/31/17 06/01/17 06/02/17 05:59 05:59 05:59 Intake Total 1090 Output Total 625 625 Balance 465 -625 Weight 66.6 kg Intake: Oral (ml) 590 IV Infused (ml) 500 Output: Urine (ml) 625 625 Urinal 625 625 Other: Number of Voids Toilet 1 Urinal 1 Vital Signs Temp Pulse Resp BP Pulse Ox 36.4 C 77 16 120/68 95 06/01/17 03:23 06/01/17 03:23 06/01/17 03:23 06/01/17 03:23 06/01/17 03:23 ICD10 Worksheet Patient Problems: Problems Problem Status Onset Back pain Acute Failure to thrive in adult Acute Fall Acute Fractured coccyx Acute Skin tear of left lower leg without complication Acute
[2017-06-01] MEDS: ENOXAPARIN 40 MG/0.4 ML SYR SC SCH (09:32)
[2017-06-01] MEDS: OXYBUTYNIN 5 MG EXT REL TAB PO SCH (09:35)
[2017-06-01] MEDS: AMLODIPINE BESYLATE 5/BENAZEPRIL 10MG 1 EACH CAP PO SCH (09:36)
[2017-06-01] MEDS: ACETAMINOPHEN 325 MG TAB PO PRN (09:36)
[2017-06-01] MEDS: PRAMIPEXOLE DI HCL 0.5 MG PO SCH ×3 (09:42→16:50)
[2017-06-01] MEDS: GALANTAMINE HBR 4 MG PO SCH (09:57)
--- NOTE | 2017-06-01 14:08 | WOCRNPDOC ---
WOCRN Advanced Assessment Note - Skin Integrity Problem, Advanced Assess Left Lower Leg Venous Stasis Ulcer Dressing Type: Allevyn Life Dressing Description: Intact Exudate Amount: Minimal Exudate Color: Reddish/Yellow Exudate Characteristic(s): Serosanguinous Integumentary Issue Intervention: Visualized Under Dressing Carlie Wound Tissue: Swollen, Hemosiderin Staining Carlie Wound Swelling: Mild Wound Bed Color: Red, Yellow Wound Bed Constitution: Red/[place] - Non Granular Tissue (90%), Loose Slough (10%) Wound Edges: Irregular Site Odor: None Site Measurement - Head-to-Toe Length X Width X Depth (cm): 4.6nfa1iet3.2cm Skin Integrity Problem Comment: Venous stasis wound w/ loose slough along inferior margin of wound bed, otherwise mostly red, non-granulating tissue. Edema noted in BLE, consistent w/ skin changes noted bilaterally. No significant erythema or swelling periwound. Will have nursing apply compression stockings.
--- NOTE | 2017-06-01 15:33 | HOSPPROG ---
Hospitalist Progress Note Assessment/Plan: #Lumbar fracture -NSGY evaluated. Discussed with son and would like to avoid interventions if possible -pain controlled with APAP. Avoid central-acting medications -PT recs SNF now, but may be able to go home with PT if improved tomorrow #Parkinson's: home meds #Reported dysphagia: passed speech eval. Eat upright #Chronic lung fibrosis: on RA #h/o prostate cancer #Diet: regular #Disp: requires inpatient admission for PT. Reassess tomorrow if can go back to [facility] with PT Subjective: min pain this morning Objective: Vital Signs Temp Pulse Resp BP Pulse Ox 36.3 C 63 18 134/65 H 95 06/01/17 08:59 06/01/17 08:59 06/01/17 08:59 06/01/17 08:59 06/01/17 08:59 05/31/17 06/01/17 06/02/17 05:59 05:59 05:59 Intake Total 1090 700 Output Total 625 625 Balance 465 75 - Time Spent With Patient Time Spent with Patient: greater than 35 minutes Time Spent with Patient: Greater than 35 minutes spent on this patients care, greater than 50% of time spent counseling, educating, and coordinating care regarding the above mentioned plan. - Physical Exam Constitutional: no apparent distress Eyes: PERRL Ears, Nose, Mouth, Throat: moist mucous membranes Cardiovascular: regular rate and rhythym, no murmur, rub, or gallop, No edema Respiratory: no respiratory distress, other (velcro-like crackles right mid-lung ) Genitourinary: no bladder fullness Skin: warm Musculoskeletal: other (no bony pain with spine palpation), No pain with ROM Neurologic: AAOx3 Psychiatric: interacting appropriately ICD10 Worksheet Patient Problems: Problems Problem Status Onset Back pain Acute Failure to thrive in adult Acute Fall Acute Fractured coccyx Acute Skin tear of left lower leg without complication Acute
--- NOTE | 2017-06-01 16:05 | ASMTCMCOM ---
CM Note CM Note Notes: Per hospitalist family not wanting any interventions regarding patient's back pain other than medications. Per therapy the patient is borderline for home with supportive service from [facility] that includes RN, PT, OT to [facility] versus need for SNF. CM to follow for discharge disposition. Date Signed: 06/01/2017 04:05 PM Electronically Signed By:Karena Watkins RN
--- NOTE | 2017-06-01 17:48 | PDMN ---
Medical Necessity Medical necessity: Change to IP, as of 06/01/17, per MD; los >2 mn for ongoing management of lumbar fx; admit for Neurosurgery consult, pain management & therapies; hx Parkinsons, chronic lung fibrosis, dysphagia & prostate cancer; per progress note & order 06/01/17
[2017-06-02] MEDS: HYDROCODONE/APAP 5/325 TAB PO PRN ×3 (00:05→23:11)
[2017-06-02] MEDS: LEVOTHYROXINE 50 MCG TAB PO SCH (05:32)
[2017-06-02] MEDS: OXYBUTYNIN 5 MG EXT REL TAB PO SCH (09:29)
[2017-06-02] MEDS: ENOXAPARIN 40 MG/0.4 ML SYR SC SCH (09:29)
[2017-06-02] MEDS: GALANTAMINE HBR 4 MG PO SCH (09:29)
[2017-06-02] MEDS: AMLODIPINE BESYLATE 5/BENAZEPRIL 10MG 1 EACH CAP PO SCH (09:29)
[2017-06-02] MEDS: PRAMIPEXOLE DI HCL 0.5 MG PO SCH ×3 (09:29→16:49)
--- NOTE | 2017-06-02 14:42 | HOSPPROG ---
Hospitalist Progress Note Assessment/Plan: 87-year-old with multiple medical problems including Parkinson's is admitted with acute back pain following a mechanical fall. He was noted to have an acute L1 compression fracture on MRI. He also has noted spinal stenosis. # back pain, likely multifactorial. He does have a lumbar fracture and was evaluated by Neurosurgery. Because he is improving and was pain is adequately controlled will not pursue any invasive procedures at this time. * Pain control * Skilled rehab post hospitalization * Continue PT OT # Parkinson's disease: Continue his usual medications # chronic lung fibrosis currently on room air # history of prostate cancer # DVT prophylaxis on Lovenox #Disp: requires inpatient admission for PT. Reassess tomorrow if can go back to [facility] with PT Objective: Vital Signs Temp Pulse Resp BP Pulse Ox 36.4 C 62 17 117/59 L 92 06/02/17 12:36 06/02/17 12:36 06/02/17 12:36 06/02/17 12:36 06/02/17 12:36 06/01/17 06/02/17 06/03/17 05:59 05:59 05:59 Intake Total 2300 Output Total 425 400 Balance 1875 -400 ICD10 Worksheet Patient Problems: Problems Problem Status Onset Failure to thrive in adult Acute Fractured coccyx Acute Fall Acute Skin tear of left lower leg without complication Acute Back pain Acute
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
[2017-06-03] MEDS: LEVOTHYROXINE 50 MCG TAB PO SCH (06:25)
[2017-06-03] MEDS: HYDROCODONE/APAP 5/325 TAB PO PRN ×2 (07:24→15:41)
[2017-06-03] MEDS: PRAMIPEXOLE DI HCL 0.5 MG PO SCH ×4 (09:20→18:45)
[2017-06-03] MEDS: AMLODIPINE BESYLATE 5/BENAZEPRIL 10MG 1 EACH CAP PO SCH (09:26)
[2017-06-03] MEDS: GALANTAMINE HBR 4 MG PO SCH (09:27)
[2017-06-03] MEDS: OXYBUTYNIN 5 MG EXT REL TAB PO SCH (09:27)
[2017-06-03] MEDS: ENOXAPARIN 40 MG/0.4 ML SYR SC SCH (09:28)
--- NOTE | 2017-06-03 14:23 | HOSPPROG ---
Hospitalist Progress Note Assessment/Plan: 87-year-old with multiple medical problems including Parkinson's is admitted with acute back pain following a mechanical fall. He was noted to have an acute L1 compression fracture on MRI. He also has noted spinal stenosis. # back pain, likely multifactorial. He does have a lumbar fracture and was evaluated by Neurosurgery. Because he is improving and was pain is adequately controlled will not pursue any invasive procedures at this time. * Pain control * Skilled rehab post hospitalization * Continue PT OT # Parkinson's disease: Continue his usual medications # chronic lung fibrosis currently on room air # history of prostate cancer # DVT prophylaxis on Lovenox #Disp: requires inpatient admission for PT. Reassess tomorrow if can go back to [facility] with PT Subjective: no new complaints. working with PT Objective: Vital Signs Temp Pulse Resp BP Pulse Ox 36.6 C 65 16 140/69 H 94 06/03/17 07:28 06/03/17 07:28 06/03/17 07:28 06/03/17 07:28 06/03/17 07:28 06/02/17 06/03/17 06/04/17 05:59 05:59 05:59 Intake Total 2300 1500 450 Output Total 425 1500 650 Balance 1875 0 -200 - Physical Exam Constitutional: no apparent distress Cardiovascular: regular rate and rhythym Respiratory: no respiratory distress, inspiratory crackles (bilateral) ICD10 Worksheet Patient Problems: Problems Problem Status Onset Failure to thrive in adult Acute Fractured coccyx Acute Fall Acute Skin tear of left lower leg without complication Acute Back pain Acute
[2017-06-03 15:36] VITALS: RESP 18
--- NOTE | 2017-06-03 17:06 | ASMTCMCOM ---
CM Note CM Note Notes: Spoke with RN; anticipate dc to SNF tomorrow. Spoke with pt's son Antonio (# in previous CM note) regarding facilities that have accepted pt. Josie states he has spoken with [facility] [place] & he would like pt to go there at time of dc. CM will continue to follow. Date Signed: 06/03/2017 05:05 PM Electronically Signed By:Catrachita Alaniz RN
[2017-06-04 05:10] VITALS: TEMP 97.9; O2SAT 93
[2017-06-04] MEDS: LEVOTHYROXINE 50 MCG TAB PO SCH (05:22)
[2017-06-04 07:47] VITALS: BP 138/69; PULSE 61
[2017-06-04] MEDS: AMLODIPINE BESYLATE 5/BENAZEPRIL 10MG 1 EACH CAP PO SCH (09:26)
[2017-06-04] MEDS: PRAMIPEXOLE DI HCL 0.5 MG PO SCH ×3 (09:27→16:08)
[2017-06-04] MEDS: OXYBUTYNIN 5 MG EXT REL TAB PO SCH (09:27)
[2017-06-04] MEDS: GALANTAMINE HBR 4 MG PO SCH (09:29)
[2017-06-04] MEDS: ENOXAPARIN 40 MG/0.4 ML SYR SC SCH (09:32)
[2017-06-04] MEDS: ACETAMINOPHEN 325 MG TAB PO PRN (09:34)
--- NOTE | 2017-06-04 10:42 | PDIAF ---
- Diagnosis Diagnosis: L1 compression fracture, parkinsons, ILD Code Status: Full Code - Medication Management Discharge Medications: Medications to Continue on Transfer Galantamine Hydrobromide [Razadyne 4 MG (*)] 4 mg PO DAILY 04/26/17 [Last Taken 05/30/17] Levothyroxine [Synthroid 50 mcg (*)] 50 mcg PO DAILY06 04/26/17 [Last Taken ] Oxybutynin Chloride [OXYBUTYNIN CHLORIDE ER] 5 mg PO DAILY 04/26/17 [Last Taken 05/30/17] amLODIPine BESYLATE/BENAZEPRIL [Lotrel 5/10 mg Cap (*)] 1 each PO DAILY [Last Taken 05/30/17] Herbals/Supplements -Info Only 1 ea PO DAILY 05/29/17 [Last Taken 05/29/17] Pramipexole Di-HCl [Mirapex] 0.5 mg PO 08,12,16 06/01/17 [Last Taken Unknown] Acetaminophen [Tylenol 325mg (*)] 650 mg PO Q4HRS PRN tab 06/04/17 [Last Taken Unknown] Hydrocodone/APAP 5/325 [Forest 5/325 (*)] 1 - 2 tab PO Q4HRS PRN tab 06/04/17 [ Last Taken Unknown] Discharge Medications: Refer to the Discharge Home Medication list for PRN reason. - Orders Services needed: Registered Nurse, Certified Route Inspector, Master Skewer Up , Physical Therapy, Occupational Therapy Isolation Type: None Diet Recommendation: no restrictions on diet Diet Texture: Regular Texture Diet, Thin Liquids - Follow Up Care Current Providers and Referrals: Patient,NotPresent [Primary Care Provider] - As per Instructions
--- NOTE | 2017-06-04 11:18 | GDS ---
[f rep st] DISCHARGE SUMMARY DIAGNOSES: 1. Acute L1 compression fracture, L4-5 stenosis with worsening back pain and difficulty ambulating. 2. Interstitial lung disease with normal oxygen saturations on room air. 3. Parkinson disease. 4. History of prostate cancer. 5. Acute functional decline in status due to multiple comorbidities and acute compression fracture. PROCEDURES DONE: Pelvic CT and lumbar and thoracic spine MRI with the above findings. CONSULTATIONS: Include neurosurgery, Dr. Eugenio Crowder. HOSPITAL COURSE: The patient is an 87-year-old male with a history of Parkinson disease. He was adm itted with an acute fall and sustaining an acute L1 compression fracture. Given his history of Parki nson disease, spinal stenosis, and acute fracture, he was unable [facility], so was admitted to the hospital for further evaluation. He did have imaging noted above and neurosurgery evaluation. Because he slowly improved with physical therapy and his pain was manag ed conservatively, he did not require any further procedures. He worked with Physical Therapy requir ing extensive hospital stay, given his multiple comorbidities, and now will be moving onto skilled re hab for further therapy. His pain has been controlled with initially IV pain medicines and now oral pain medicines. His other medical issues remained relatively stable. He has a history of Parkinson disease, which is managed with medications, and interstitial lung disease, which has some abnormal adriana ng findings, but his oxygen saturations have been adequate on room air. CONDITION ON DISCHARGE: Good. PHYSICAL EXAMINATION: VITAL SIGNS: Stable, with an O2 sat of 93% on room air. Blood pressure 138/6 9. GENERAL: He is alert. He is Croatian-speaking only. LUNGS: He has rales in both lungs more kasi n mcc up, but otherwise good breath sounds. BACK: Minimally tender spine. DISCHARGE MEDICATIONS: Please see discharge medication form. FOLLOWUP: He will be discharged to skilled rehab and hopefully to return to his independent living f acility. Total time spent with patient on day of discharge and coordination of care is 35 minutes. /[id number]/MODL
--- NOTE | 2017-06-04 14:51 | ASMTCMCOM ---
CM Note CM Note Notes: Patient medically cleared for discharge. He is to go to [facility] [place] this afternoon. I have spoken to his family. Final orders via [employer]. [facility] to provide transportaiton about 4 pm. RN texted with report number. CM available should other needs arise. Date Signed: 06/04/2017 02:50 PM Electronically Signed By:Karena Watkins RN
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
== END 2017-06-04 16:24 | DRG 552 ==
LOC: EDUNIT# → F1N 09:20 → INTOOBSV 14:58 → OBSVTOIN 14:58
PROVIDERS: ADMIT Family Medicine; ATTEND Family Medicine
DX: S32.010A Wedge compression fracture of first lumbar vertebra, initial encounter for closed fracture (principal); J84.9 Interstitial pulmonary disease, unspecified; W19.XXXA Unspecified fall, initial encounter; G20 Parkinson's disease; M48.062 Spinal stenosis, lumbar region with neurogenic claudication; I83.008 Varicose veins of unspecified lower extremity with ulcer other part of lower leg; Z85.46 Personal history of malignant neoplasm of prostate; I10 Essential (primary) hypertension; Z87.891 Personal history of nicotine dependence
CPT/HCPCS: 92526-GN; 92610-GN; 96374; 97110-GP; 97116-GP; 97161-GP; 97166-GO; 97530-GP; 97535-GO; G0378; G8978-GP-CJ; G8978-GP-CK; G8979-GP-CI; G8987-GO-CI; G8987-GO-CJ; G8988-GO-CI; G8989-GO-CI; G8996-GN-CH; G8996-GN-CI; G8997-GN-CH; G8997-GN-CI; G8998-GN-CH; J1650; J3010